=== PATIENT | male | born 1990 | race Caucasian/White ===

== ENCOUNTER 2022-12-04 19:59 | Emergency (ER) | payer SELFPAY ==
[2022-12-04] MEDS ORDERED: Sulfameth/Trimethoprim DS 800-160mg TAB ONE (21:26)
== END 2022-12-04 21:35 | disposition home or self-care (01) ==
LOC: MADERS 19:59
DX: L03.115 Cellulitis of right lower limb (principal); L03.116 Cellulitis of left lower limb; L73.9 Follicular disorder, unspecified; I10 Essential (primary) hypertension; F17.290 Nicotine dependence, other tobacco product, uncomplicated
CPT/HCPCS: 96372; 99282; J1040